=== PATIENT | female | born 2000 | race Two or more races ===

== ENCOUNTER 2024-10-16 13:13 | Emergency (ER) | payer OTHER ==
[~2024-10-16] VITALS: Ht 157.5 cm; Wt 81.6 kg
[2024-10-16] MEDS ORDERED: PRENATA CHEWAB1 EACH PO (13:40)
[2024-10-16 14:44] LABS: BASO % 0.2 % (0.1-1.2); EOS # 0.15 (0.04-0.54); EOS % 1.8 % (0.7-7.0); HEMATOCRIT 37.1 % (34.1-44.9); HEMOGLOBIN 12.2 g/dL (11.2-15.7); LYMPH # 1.62 (1.18-3.74); LYMPH % 19.5 % (19.3-53.1); NEUT # 5.99 (1.56-6.13); NEUT % 72.1 % (34.0-71.1); PLATELET COUNT 226 K/uL (163-369); RED BLOOD COUNT 4.69 M/uL (3.93-5.22)
== END 2024-10-16 17:12 | disposition home or self-care (01) ==
LOC: ER 13:13
PROVIDERS: Emergency Medicine
DX: O20.9 Hemorrhage in early pregnancy, unspecified (principal); Z3A.15 15 weeks gestation of pregnancy

== ENCOUNTER 2024-12-21 07:18 | Outpatient (CLI) | payer OTHER ==
[~2024-12-21 07:18] MED LIST: PRENATA CHEWAB1 EACH PO
== END 2024-12-21 07:32 | disposition home or self-care (01) ==
LOC: PRENATAL 07:18
PROVIDERS: ATTEND Obstetrics & Gynecology Maternal & Fetal Medicine
DX: O44.00 Complete placenta previa NOS or without hemorrhage, unspecified trimester (principal); Z3A.20 20 weeks gestation of pregnancy

== ENCOUNTER 2025-01-07 09:23 | Outpatient (CLI) | payer OTHER | END 2025-01-07 09:26 | disposition home or self-care (01) | LOC: PRENATAL 09:23 | PROVIDERS: ATTEND Obstetrics & Gynecology Maternal & Fetal Medicine | DX: Z76.1 Encounter for health supervision and care of foundling (principal) ==

== ENCOUNTER 2025-02-08 12:29 | Outpatient (CLI) | payer OTHER ==
[~2025-02-08] VITALS: Ht 157.5 cm; Wt 82.6 kg
[2025-02-08 11:24] VITALS: BP 105/65; O2SAT 99
[2025-02-08] MEDS ORDERED: LEXAPRO5 MG PO (12:46)
[2025-02-08] MEDS ORDERED: VISTARIL50 MG/ML IM (12:46)
[2025-02-08 15:26] VITALS: BP 110/68
== END 2025-02-08 14:50 | disposition home or self-care (01) ==
LOC: OBS/DEL 12:29
PROVIDERS: ATTEND General Practice
DX: O36.8120 Decreased fetal movements, second trimester, not applicable or unspecified (principal); O26.842 Uterine size-date discrepancy, second trimester; Z3A.27 27 weeks gestation of pregnancy

== ENCOUNTER 2025-02-28 23:25 | Inpatient (IN) | payer OTHER ==
[~2025-02-28] VITALS: Ht 157.5 cm; Wt 83.9 kg
[2025-02-28 23:05] VITALS: BP 109/72; BP 111/73
[~2025-02-28 23:25] MED LIST changes: +LEXAPRO5 MG PO; +VISTARIL50 MG/ML IM
[2025-02-28] MEDS ORDERED: RINGERS SOLUTION,LACTATED 1,000 ML IV SCH (23:45)
[2025-03-01 00:50] LABS: BASO % 0.2 % (0.1-1.2); EOS # 0.11 (0.04-0.54); EOS % 1.0 % (0.7-7.0); LYMPH # 2.26 (1.18-3.74); LYMPH % 21.1 % (19.3-53.1); MEAN PLATELET VOLUME 11.50 fl (9.4-12.4); MONO # 0.72 (0.24-0.82); MONO % 6.7 % (4.7-12.5); NEUT # 7.49 (1.56-6.13); NEUT % 69.9 % (34.0-71.1); RED CELL DISTRIBUTION WIDTH 14.1 % (11.6-14.4)
[2025-03-01 00:58] LABS: INR 0.97
[2025-03-01 00:59] LABS: URINE APPEARANCE Clear; URINE BILIRRUBIN Negative (NEGATIVE); URINE BLOOD Negative; URINE COLOR Yellow; URINE GLUCOSE Negative (NEGATIVE); URINE KETONE Negative (NEGATIVE); URINE LEUKOCYTE Negative; URINE NITRATE Negative; URINE PROTEIN Negative (NEGATIVE); URINE UROBILINOGEN 0.2 E.U./dl
[2025-03-01 01:02] LABS: ALT/SGPT 35.0 U/L (12-78); AST/SGOT 20.0 U/L (15-37); BILIRUBIN TOTAL 0.29 mg/dL (0.3-1.2); BUN CREA RATIO 15.0 (7.0-25.0); CREATININE SERUM 0.48 mg/dL (0.55-1.02); GFR 161.72; GLOBULINA 3.2 G/DL (2.4-3.5); GLUCOSE FASTING 84.0 mg/dL (65-100); OSMOLALITY SERUM 278.0 MOSM/KG (275-295); URINE BACTERIA 903.6 uL (0.0-1933); URINE EPITHELIAL CELLS 17.2 uL (0.0-38.8); URINE RBC 9.5 uL (0.0-20.8); URINE WBC 11.0 uL (0.0-23.2)
[2025-03-01 01:05] LABS: URINE CAST 0.43 uL (0.0-1.40)
[2025-03-01 04:00] VITALS: BP 113/73
[2025-03-01 06:22] VITALS: BP 100/66; BP 109/66; O2SAT 97
[2025-03-01 10:52] VITALS: BP 103/65
[2025-03-01 15:26] VITALS: BP 108/68
[2025-03-01] MEDS ORDERED: ACETAMINOPHEN 500 MG GEL..CAP PO ONE (18:23)
[2025-03-01 18:30] VITALS: BP 111/75
[2025-03-01] MEDS ORDERED: ACETAMINOPHEN 500 MG GEL..CAP PO PRN (18:45)
[2025-03-01 23:30] VITALS: BP 106/68
[2025-03-01 23:59] LABS: URINE PROT QUANT 24HR 7.3 MG/DL
[2025-03-02 00:29] LABS: URINE PROT QUANT 24 HR 189.8 MG/24HR (42-225)
[2025-03-02 03:35] VITALS: BP 105/68
[2025-03-02 06:14] VITALS: BP 100/65; O2SAT 99
[2025-03-02] MEDS ORDERED: FERROUS SULFATE 325 MG TABLET.EC PO SCH (09:00)
[2025-03-02] MEDS ORDERED: PNV,CALCIUM 72/IRON/FOLIC ACID 1 TAB TABLET PO SCH (09:00)
[2025-03-02] MEDS ORDERED: IRON325 MG PO (10:28)
== END 2025-03-02 10:36 | disposition home or self-care (01) | DRG 833 ==
LOC: LDR 23:25
PROVIDERS: ADMIT Student in an Organized Health Care Education/Training Program; ATTEND Student in an Organized Health Care Education/Training Program
PROC: 4A1HXCZ Monitoring of Products of Conception, Cardiac Rate, External Approach (ICD-10-PCS; principal; 2025-02-28)
PROC: BY4FZZZ Ultrasonography of Third Trimester, Single Fetus (ICD-10-PCS; 2025-03-01)
DX: O13.3 Gestational [pregnancy-induced] hypertension without significant proteinuria, third trimester (principal); O26.843 Uterine size-date discrepancy, third trimester; O36.8130 Decreased fetal movements, third trimester, not applicable or unspecified; O14.93 Unspecified pre-eclampsia, third trimester; Z3A.30 30 weeks gestation of pregnancy

== ENCOUNTER 2025-03-17 10:55 | Outpatient (CLI) | payer OTHER ==
[~2025-03-17 10:55] MED LIST changes: +IRON325 MG PO
== END 2025-03-17 15:51 | disposition home or self-care (01) ==
LOC: NST 10:55
PROVIDERS: ATTEND General Practice
DX: Z34.83 Encounter for supervision of other normal pregnancy, third trimester (principal)

== ENCOUNTER 2025-03-25 13:35 | Outpatient (CLI) | payer OTHER | END 2025-03-25 16:13 | disposition home or self-care (01) | LOC: NST 13:35 | PROVIDERS: ATTEND General Practice | DX: Z34.83 Encounter for supervision of other normal pregnancy, third trimester (principal) ==

== ENCOUNTER 2025-03-25 14:35 | Outpatient (CLI) | payer OTHER | END 2025-03-25 14:36 | disposition home or self-care (01) | LOC: PRENATAL 14:35 | DX: O26.843 Uterine size-date discrepancy, third trimester (principal); O36.8130 Decreased fetal movements, third trimester, not applicable or unspecified; O13.3 Gestational [pregnancy-induced] hypertension without significant proteinuria, third trimester; Z3A.33 33 weeks gestation of pregnancy ==

== ENCOUNTER 2025-03-30 10:58 | Outpatient (CLI) | payer OTHER ==
[~2025-03-30] VITALS: Ht 157.5 cm; Wt 83.9 kg
[2025-03-30 09:14] VITALS: BP 109/73; O2SAT 100
[2025-03-30] MEDS ORDERED: BETAMETHASONE ACETATE,SOD PHOS 30 MG/5 ML ML IM SCH (11:07)
[2025-03-30] MEDS ORDERED: RINGERS SOLUTION,LACTATED 1,000 ML IV SCH (11:15)
[2025-03-30 11:46] LABS: BASO % 0.3 % (0.1-1.2); EOS # 0.10 (0.04-0.54); EOS % 0.9 % (0.7-7.0); LYMPH # 1.89 (1.18-3.74); LYMPH % 17.2 % (19.3-53.1); MEAN PLATELET VOLUME 11.80 fl (9.4-12.4); MONO # 0.68 (0.24-0.82); MONO % 6.2 % (4.7-12.5); NEUT # 8.20 (1.56-6.13); NEUT % 74.7 % (34.0-71.1); RED CELL DISTRIBUTION WIDTH 13.9 % (11.6-14.4)
[2025-03-30] MEDS ORDERED: PRENATAL TABLE1 EAC1 PO (11:47)
[2025-03-30 12:43] LABS: ALT/SGPT 14.0 U/L (12-78); AST/SGOT 14.0 U/L (15-37); BILIRUBIN TOTAL 0.23 mg/dL (0.3-1.2); BUN CREA RATIO 11.0 (7.0-25.0); CREATININE SERUM 0.44 mg/dL (0.55-1.02); GFR 178.81; GLOBULINA 3.1 G/DL (2.4-3.5); GLUCOSE FASTING 66.0 mg/dL (65-100); OSMOLALITY SERUM 280.0 MOSM/KG (275-295)
[2025-03-30 15:53] VITALS: BP 123/75
[2025-03-30 19:15] VITALS: BP 112/75
[2025-03-30 23:36] VITALS: BP 114/66
[2025-03-31 03:15] VITALS: BP 109/70
[2025-03-31 07:18] VITALS: BP 120/74
[2025-03-31] MEDS ORDERED: ACETAMINOPHEN 500 MG GEL..CAP PO ONE (07:45)
[2025-03-31 11:30] VITALS: BP 109/67
[2025-03-31] MEDS ORDERED: BETAMETHASONE ACETATE,SOD PHOS 30 MG/5 ML ML ONE (11:30)
[2025-03-31 12:18] VITALS: BP 109/67
[2025-03-31 12:28] LABS: URINE PROT QUANT 24HR 10.9 MG/DL
[2025-03-31 12:39] LABS: URINE PROT QUANT 24 HR 240.89 MG/24HR (42-225)
[2025-03-31 15:28] VITALS: BP 127/74
== END 2025-03-31 16:55 | disposition home or self-care (01) ==
LOC: OBS/DEL 10:58 → LDR 03-31 12:20 → OBS/DEL 03-31 12:20 → LDR 03-31 16:55
PROVIDERS: Student in an Organized Health Care Education/Training Program; ATTEND General Practice
DX: O36.8130 Decreased fetal movements, third trimester, not applicable or unspecified (principal); O13.3 Gestational [pregnancy-induced] hypertension without significant proteinuria, third trimester; Z3A.34 34 weeks gestation of pregnancy

== ENCOUNTER 2025-04-12 14:45 | Outpatient (CLI) | payer OTHER ==
[~2025-04-12 14:45] MED LIST changes: +PRENATAL TABLE1 EAC1 PO
== END 2025-04-12 16:37 | disposition home or self-care (01) ==
LOC: NST 14:45
PROVIDERS: ATTEND General Practice
DX: Z34.83 Encounter for supervision of other normal pregnancy, third trimester (principal)

== ENCOUNTER 2025-04-12 15:15 | Inpatient (IN) | payer OTHER ==
[~2025-04-12] VITALS: Ht 157.5 cm; Wt 2.3 kg
[2025-04-14 20:30] VITALS: BP 120/84
[2025-04-14] MEDS ORDERED: RINGERS SOLUTION,LACTATED 500 ML IV SCH (21:00)
[2025-04-14 21:19] LABS: BASO % 0.2 % (0.1-1.2); EOS # 0.15 (0.04-0.54); EOS % 1.2 % (0.7-7.0); LYMPH # 2.34 (1.18-3.74); LYMPH % 19.0 % (19.3-53.1); MEAN PLATELET VOLUME 11.50 fl (9.4-12.4); MONO # 0.81 (0.24-0.82); MONO % 6.6 % (4.7-12.5); NEUT # 8.87 (1.56-6.13); NEUT % 72.1 % (34.0-71.1); RED CELL DISTRIBUTION WIDTH 14.1 % (11.6-14.4)
[2025-04-14 21:21] LABS: URINE APPEARANCE Clear; URINE BILIRRUBIN Negative (NEGATIVE); URINE BLOOD Negative; URINE COLOR Yellow; URINE GLUCOSE Negative (NEGATIVE); URINE KETONE Negative (NEGATIVE); URINE LEUKOCYTE Small; URINE NITRATE Negative; URINE PROTEIN Negative (NEGATIVE); URINE UROBILINOGEN 0.2 E.U./dl
[2025-04-14 21:24] LABS: URINE EPITHELIAL CELLS 18.3 uL (0.0-38.8); URINE RBC 13.8 uL (0.0-20.8); URINE WBC 102.7 uL (0.0-23.2)
[2025-04-14 21:40] LABS: TYPE CELLS SQUAMOUS; URINE CAST 0.56 uL (0.0-1.40); URINE CRYSTALS MODERATE /HPF
[2025-04-14 21:41] LABS: URINE MUCUS SCANT
[2025-04-14 21:59] LABS: INR 0.98
[2025-04-14 22:04] LABS: ALT/SGPT 15.0 U/L (12-78); AST/SGOT 11.0 U/L (15-37); BILIRUBIN TOTAL 0.26 mg/dL (0.3-1.2); BUN CREA RATIO 15.0 (7.0-25.0); CREATININE SERUM 0.52 mg/dL (0.55-1.02); GFR 147.46; GLOBULINA 3.4 G/DL (2.4-3.5); GLUCOSE FASTING 72.0 mg/dL (65-100); OSMOLALITY SERUM 280.0 MOSM/KG (275-295)
[2025-04-14 23:34] VITALS: BP 107/70
[2025-04-15 03:33] VITALS: BP 130/68
[2025-04-15 07:57] VITALS: BP 127/89
[2025-04-15] MEDS ORDERED: MISOPROSTOL 25 MCG TABLET VAG ONE ×2 (08:45→16:45)
[2025-04-15] MEDS ORDERED: AMPICILLIN SODIUM 2,000 MG VIAL IV ONE (09:00)
[2025-04-15 12:04] VITALS: BP 131/84
[2025-04-15] MEDS ORDERED: AMPICILLIN SODIUM 1,000 MG in 0.9 % SODIUM CHLORIDE 100 ML IV SCH (13:00)
[2025-04-15 15:21] VITALS: BP 124/80; O2SAT 98
[2025-04-15 18:29] VITALS: BP 118/62
[2025-04-15 23:21] VITALS: BP 112/56
[2025-04-16 03:44] VITALS: BP 121/77
[2025-04-16 07:42] VITALS: BP 122/77
[2025-04-16] MEDS ORDERED: MISOPROSTOL 25 MCG/4 ML GEL.W.APPL VAG NR (11:00)
[2025-04-16 12:17] VITALS: BP 128/73
[2025-04-16] MEDS ORDERED: MISOPROSTOL 25 MCG/4 ML GEL.W.APPL VAG ONE (15:15)
[2025-04-16 15:35] VITALS: BP 117/64
[2025-04-16] MEDS ORDERED: ONDANSETRON HCL 2 MG/ML VIAL ONE (16:09)
[2025-04-16] MEDS ORDERED: ONDANSETRON HCL 4 MG in DEXTROSE 5 % IN WATER 50 ML IV SCH (17:00)
[2025-04-16 18:53] VITALS: BP 113/77
[2025-04-16] MEDS ORDERED: AMPICILLIN SODIUM 1,000 MG VIAL ONE (22:01)
[2025-04-16 23:19] VITALS: BP 128/80
[2025-04-17] VITALS (8 sets, daily range): BP systolic 109–130; BP diastolic 51–83
[2025-04-17] MEDS ORDERED: OXYTOCIN 500 ML IV SCH (08:15)
[2025-04-17] MEDS ORDERED: SODIUM CL 0.9% 100 ML IV.SOLN IV ONE (08:19)
[2025-04-17] MEDS ORDERED: AMPICILLIN SODIUM 1,000 MG VIAL ONE (08:20)
[2025-04-17] MEDS ORDERED: MORPHINE SULFATE 4 MG/ML VIAL IV ONE (09:30)
[2025-04-17] MEDS ORDERED: ERYTHROMYCIN BASE OPHT 1GM EACH TUBE OP ONE ×2 (14:56→16:45)
[2025-04-17] MEDS ORDERED: OXYTOCIN 20 UNITS/1000ML RL PIGGYBAG IV ONE (14:56)
[2025-04-17] MEDS ORDERED: CHLORHEXIDINE GLUCONATE 120 ML BOTTLE TOP ONE ×2 (14:56→16:15)
[2025-04-17] MEDS ORDERED: LIDOCAINE HCL 1% 10ML VIAL ONE (14:57)
[2025-04-17] MEDS ORDERED: OXYTOCIN 1,000 ML IV SCH (16:15)
[2025-04-17] MEDS ORDERED: LIDOCAINE HCL 1% 10ML VIAL IJ ONE (16:45)
[2025-04-17] MEDS ORDERED: DOCUSATE SODIUM 100MG CAP PO SCH (17:00)
[2025-04-17] MEDS ORDERED: BENZOCAINE/MENTHOL 90 ML BOTTLE TOP SCH (17:00)
[2025-04-18] VITALS: BP 116/74
[2025-04-18 07:54] LABS: BASO % 0.2 % (0.1-1.2); EOS # 0.11 (0.04-0.54); EOS % 0.7 % (0.7-7.0); LYMPH # 2.81 (1.18-3.74); LYMPH % 18.9 % (19.3-53.1); MEAN PLATELET VOLUME 11.70 fl (9.4-12.4); MONO # 0.90 (0.24-0.82); MONO % 6.1 % (4.7-12.5); NEUT # 10.90 (1.56-6.13); NEUT % 73.6 % (34.0-71.1); RED CELL DISTRIBUTION WIDTH 14.4 % (11.6-14.4)
[2025-04-18 09:45] VITALS: BP 117/76
[2025-04-18 13:09] VITALS: BP 121/82
[2025-04-18 18:00] VITALS: BP 129/80
[2025-04-19 02:30] VITALS: BP 102/69
[2025-04-19 08:08] VITALS: BP 129/89
[2025-04-19 16:15] VITALS: BP 124/81
[2025-04-20] VITALS: BP 133/84
[2025-04-20 08:52] VITALS: BP 123/80
== END 2025-04-20 20:03 | disposition home or self-care (01) | DRG 776 ==
LOC: LDR 04-14 20:40 → OB/GYN 04-15 15:15
PROVIDERS: ADMIT Student in an Organized Health Care Education/Training Program; ATTEND Student in an Organized Health Care Education/Training Program
PROC: 4A1HXCZ Monitoring of Products of Conception, Cardiac Rate, External Approach (ICD-10-PCS; 2025-04-14)
PROC: 3E0P7VZ Introduction of Hormone into Female Reproductive, Via Natural or Artificial Opening (ICD-10-PCS; 2025-04-15)
PROC: 10E0XZZ Delivery of Products of Conception, External Approach (ICD-10-PCS; principal; 2025-04-17)
PROC: 0UQG7ZZ Repair Vagina, Via Natural or Artificial Opening (ICD-10-PCS; 2025-04-17)
PROC: 3E033VJ Introduction of Other Hormone into Peripheral Vein, Percutaneous Approach (ICD-10-PCS; 2025-04-17)
DX: O71.4 Obstetric high vaginal laceration alone (principal); O60.14X0 Preterm labor third trimester with preterm delivery third trimester, not applicable or unspecified; O99.824 Streptococcus B carrier state complicating childbirth; O13.4 Gestational [pregnancy-induced] hypertension without significant proteinuria, complicating childbirth; Z3A.36 36 weeks gestation of pregnancy